=== PATIENT | male | born 1970 | race Caucasian/White ===

== ENCOUNTER 2017-12-04 09:01 | Emergency (ER) | payer MEDICAID, SELFPAY ==
[2017-12-04 09:06] VITALS: BP 124/86; PULSE 74; RESP 18; TEMP 36.8; O2SAT 97; BMI 28.1
--- NOTE | 2017-12-04 09:17 | XR_ITS ---
XR chest 2V HISTORY: Right-sided pain and cough ITS.REASON: r sided pain and cough ORDERING PHYSICIAN: Ovi Watters MD PATIENT AGE: 47 years COMPARISON: 08/31/2016 FINDINGS: The cardiomediastinal silhouette and pulmonary vascularity are within normal limits. The lungs are clear without infiltrates, suspicious nodules, or pleural effusions. There is chronic wedging of T11 slightly worse than when compared to an older lumbar spine film of 02/28/2009. No acute bony abnormalities. IMPRESSION: No acute finding. Chronic wedging of T11
--- NOTE | 2017-12-04 09:17 | CT_ITS ---
CT head/brain wo con HISTORY: Severe right frontal headache ITS.REASON: r frontal headache ORDERING PHYSICIAN: Ovi Watters MD PATIENT AGE: 47 years COMPARISON: None TECHNIQUE: Axial images obtained without contrast. Brain and bone windows reviewed. FINDINGS: No midline shift, mass effect, intracranial hemorrhage, hydrocephalus, or extra-axial fluid collection is evident. The calvarium has an unremarkable appearance. No mastoid effusion. Mild mucosal thickening involves the right maxillary and ethmoid sinuses without obvious air-fluid level... IMPRESSION: 1. No acute intracranial findings. 2. Mild sinus disease.
--- NOTE | 2017-12-04 09:20 | CT_ITS ---
CT abdomen pelvis wo con CLINICAL INDICATION: Right-sided flank pain, right upper quadrant pain ITS.REASON: r flank pain ORDERING PHYSICIAN: Ovi Watters MD PATIENT AGE: 47 years COMPARISON: None TECHNIQUE: Axial images obtained with sagittal and coronal reformats. PROCEDURE: Oral Contrast: None IV Contrast: None . FINDINGS: Lung bases are clear. There is mild diffuse fatty liver with no focal liver lesion demonstrated. No radio opaque gallstones. Spleen, adrenal glands, pancreas, and kidneys have an unremarkable unenhanced CT appearance. No obstructing renal or ureteral calculi. No evidence of appendicitis or diverticulitis. No intestinal obstruction or free air. There is mild thickening of the urinary bladder wall. This however may be due to under distention. Cystitis would be included in the differential diagnosis. No pelvic mass apparent. There is mild wedging of T11 anteriorly which appears old. IMPRESSION: 1. No definite acute abdominal or pelvic findings. 2. Minimal thickening versus nondistention of the urinary bladder wall. 3. Old wedging of T11
--- NOTE | 2017-12-04 09:23 | HMH.EDGENADL ---
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 2- use abx. 3- see pcp 4- cough medicine 5- return if needed. 6- pcp list. Prescriptions: Benzonatate [Tessalon Perle 100mg Cap] 200 mg PO Q4HP PRN #30 cap PRN Reason: Cough Amoxicillin [Amoxicillin 500mg Cap] 500 mg PO TID #30 cap Meloxicam [Mobic 7.5mg Tab] 7.5 mg PO BID 20 Days #10 tab Referrals: Jonas Santos MD [Staff Physician] - - Critical Care Critical Care Time: No Attestation: On , the high probability of a clinically significant, sudden or life threatening deterioration of the following system(s) required my full and direct attention, intervention and personal management. The time I documented below is in addition to time spent performing reported procedures but includes the following listed in this critical care notation. Medical Decision Making - Christiano Inquiry Pt receiving controlled substance: No Christiano was queried for this patient: No Vital Signs: 12/04/17 09:06 Temperature 98.2 F Temperature Source Oral Pulse Rate [Right Brachial] 74 Respiratory Rate 18 Blood Pressure [Right Arm] 124/86 Blood Pressure Mean [Right Arm] 98 Blood Pressure Source [Right Arm] Automatic Cuff Blood Pressure Position [Right Arm] Sitting 02 Sat by Pulse Oximetry 97 Oxygen Delivery Method Room Air - Lab Data Lab Results 12/04/17 09:15: WBC 5.5, RBC 4.84, Hgb 15.2, Hct 45.6, MCV 94.2 H, MCH 31.5 H, MCHC 33.4, RDW 12.8, Plt Count 206, MPV 8.4, Neut % (Auto) 52.1, Lymph % (Auto) 37.4, [place] % (Auto) 7.5, Eos % (Auto) 2.1, Baso % (Auto) 0.9, Neut # (Auto) 2.9, Lymph # (Auto) 2.1, [place] # (Auto) 0.4, Eos # (Auto) 0.1, Baso # (Auto) 0.1 12/04/17 09:15: Sodium 142, Potassium 3.8, Chloride 105, Carbon Dioxide 31, Anion Gap 9.8, BUN 11, Creatinine 1.06, Estimated Creat Clear 97, Estimated GFR 74, Est GFR ( Amer) 90, Glucose 102, Calcium 9.1, Total Bilirubin 0.7, AST 21, ALT 61, Alkaline Phosphatase 114, Troponin I < 0.02, Total Protein 7.6, Albumin 4.0, Globulin 3.6 H, Albumin/Globulin Ratio 1.1, Lipase 107 Result diagrams: 12/04/17 09:15 12/04/17 09:15 Orders (Tests/Meds): ED MEDICATIONS Generic Name Dose Route Start Last Admin Trade Name Freq PRN Reason Stop Dose Admin Benzonatate 200 mg 12/04/17 11:15 12/04/17 11:18 Tessalon Perles 100mg Capsule PO 01/03/18 11:14 200 mg ONCE BRI Administration Ceftriaxone Sodium 1 gm/ 50 mls @ 100 mls/hr 12/04/17 11:15 12/04/17 11:18 Sodium Chloride IV 12/18/17 11:14 100 mls/hr Q24H BRI Administration Protocol Discontinued Medications Generic Name Dose Route Start Last Admin Trade Name Freq PRN Reason Stop Dose Admin Sodium Chloride 1,000 mls @ 999 mls/hr 12/04/17 09:30 12/04/17 10:25 Sod Chlor 0.9% 1000ml Bag IV 12/04/17 10:30 999 mls/hr .Q1H1M BRI Administration Ketorolac Tromethamine 30 mg 12/04/17 09:22 12/04/17 10:25 Toradol 30mg/Ml Vial IV 12/04/17 09:23 30 mg ONCE ONE Administration ORDERS Category Date Time Status XR chest 2V Stat Exams 12/04/17 09:17 Taken Drug Screen,Urine Stat Lab 12/04/17 09:21 Ordered Urinalysis and Microscopic Stat Lab 12/04/17 09:21 Ordered ECG Request by /Nse Stat Y 12/04/17 09:17 Ordered - ECG Data Tracing #1 Normal sinus rhythm 74/min, baseline artifact in lead I and aVR no acute finding. ECG initial impression date: 12/04/17 ECG initial impression time: 09:32 Normal Sinus Rhythm: Yes (74/min no acute finding.) Medical Decision Narrative: The patient felt improvement of his pa
--- NOTE | 2017-12-04 09:27 | ED_ITS ---
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 2- use abx. 3- see pcp 4- cough medicine 5- return if needed. 6- pcp list. Prescriptions: Benzonatate [Tessalon Perle 100mg Cap] 200 mg PO Q4HP PRN #30 cap PRN Reason: Cough Amoxicillin [Amoxicillin 500mg Cap] 500 mg PO TID #30 cap Meloxicam [Mobic 7.5mg Tab] 7.5 mg PO BID 20 Days #10 tab Referrals: Jonas Santos MD [Staff Physician] - - Critical Care Critical Care Time: No Attestation: On , the high probability of a clinically significant, sudden or life threatening deterioration of the following system(s) required my full and direct attention, intervention and personal management. The time I documented below is in addition to time spent performing reported procedures but includes the following listed in this critical care notation. Medical Decision Making - Christiano Inquiry Pt receiving controlled substance: No Christiano was queried for this patient: No Vital Signs: 12/04/17 09:06 Temperature 98.2 F Temperature Source Oral Pulse Rate [Right Brachial] 74 Respiratory Rate 18 Blood Pressure [Right Arm] 124/86 Blood Pressure Mean [Right Arm] 98 Blood Pressure Source [Right Arm] Automatic Cuff Blood Pressure Position [Right Arm] Sitting 02 Sat by Pulse Oximetry 97 Oxygen Delivery Method Room Air - Lab Data Lab Results 12/04/17 09:15: WBC 5.5, RBC 4.84, Hgb 15.2, Hct 45.6, MCV 94.2 H, MCH 31.5 H, MCHC 33.4, RDW 12.8, Plt Count 206, MPV 8.4, Neut % (Auto) 52.1, Lymph % (Auto) 37.4, [place] % (Auto) 7.5, Eos % (Auto) 2.1, Baso % (Auto) 0.9, Neut # (Auto) 2.9 , Lymph # (Auto) 2.1, [place] # (Auto) 0.4, Eos # (Auto) 0.1, Baso # (Auto) 0.1 12/04/17 09:15: Sodium 142, Potassium 3.8, Chloride 105, Carbon Dioxide 31, Anion Gap 9.8, BUN 11, Creatinine 1.06, Estimated Creat Clear 97, Estimated GFR 74, Est GFR ( Amer) 90, Glucose 102, Calcium 9.1, Total Bilirubin 0.7, AST 21, ALT 61, Alkaline Phosphatase 114, Troponin I < 0.02, Total Protein 7.6, Albumin 4.0, Globulin 3.6 H, Albumin/Globulin Ratio 1.1, Lipase 107 Result diagrams: 12/04/17 09:15 12/04/17 09:15 Orders (Tests/Meds): ED MEDICATIONS Generic Name Dose Route Start Last Admin Trade Name Freq PRN Reason Stop Dose Admin Benzonatate 200 mg 12/04/17 11:15 12/04/17 11:18 Tessalon Perles 100mg Capsule PO 01/03/18 11:14 200 mg ONCE BRI Administration Ceftriaxone Sodium 1 gm/ 50 mls @ 100 mls/hr 12/04/17 11:15 12/04/17 11:18 Sodium Chloride IV 12/18/17 11:14 100 mls/hr Q24H BRI Administration Protocol Discontinued Medications Generic Name Dose Route Start Last Admin Trade Name Freq PRN Reason Stop Dose Admin Sodium Chloride 1,000 mls @ 999 mls/hr 12/04/17 09:30 12/04/17 10:25 Sod Chlor 0.9% 1000ml Bag IV 12/04/17 10:30 999 mls/hr .Q1H1M BRI Administration Ketorolac Tromethamine 30 mg 12/04/17 09:22 12/04/17 10:25 T
[2017-12-04 09:30] LABS: Basophils # 0.1 K/mm3 (0-0.2); Basophils % 0.9 % (0.1-2.0); Eosinophils # 0.1 K/mm3 (0.0-0.4); Eosinophils % 2.1 % (0.1-12.0); Hematocrit 45.6 % (42.0-52.0); Hemoglobin 15.2 g/dL (14.1-18.0); Lymphocytes # 2.1 K/mm3 (0.7-4.5); Lymphocytes % 37.4 K/mm3 (10-50); Mean Corpuscular HGB Conc 33.4 g/dL (31.8-35.4); Mean Corpuscular Hemoglobin 31.5 pg (27.0-31.2); Mean Corpuscular Volume 94.2 fl (80-94); Mean Platelet Volume 8.4 fl (7.4-10.4); Monocytes # 0.4 K/mm3 (0.1-1.0); Monocytes % 7.5 % (1.7-9.3); Neutrophils # 2.9 K/mm3 (1.8-7.8); Neutrophils % 52.1 % (37.0-80.0); Platelet Count 206 K/mm3 (142-424); Red Blood Count 4.84 M/mm3 (4.60-6.20); Red Cell Distribution Width 12.8 % (11.5-17.5); White Blood Count 5.5 K/mm3 (4.8-10.8)
[2017-12-04 09:44] LABS: Alanine Aminotransferase 61 U/L (12-78); Albumin/Globulin Ratio 1.1 (1.1-1.8); Alkaline Phosphatase 114 U/L (46-116); Anion Gap 9.8 mEq/L (5-15); Aspartate Amino Transferase 21 U/L (15-37); Bilirubin,Total 0.7 mg/dL (0.2-1.0); Blood Urea Nitrogen 11 mg/dL (7-18); Calcium 9.1 mg/dL (8.5-10.1); Carbon Dioxide 31 mmol/L (21.0-32.0); Chloride 105 mmol/L (98-107); Creatinine Clearance Estimated 97 mL/min (0-300); Creatinine,Serum 1.06 mg/dL (0.70-1.30); Estimated Glomerular Filt Rate 74 ml/min (>60); GFR (African American) 90 ML/MIN (>60); Globulin 3.6 gm/dl (1.3-3.2); Glucose 102 mg/dL (74-106); Lipase 107 u/L (73-393); Potassium 3.8 mmoL/L (3.5-5.1); Sodium 142 mmol/L (136-145); Total Protein,Serum 7.6 gm/dL (6.4-8.2); Troponin I < 0.02 ng/ml (0.00-0.06)
[2017-12-04 12:07] VITALS: BP 142/96; PULSE 73; RESP 20; TEMP 36.9; O2SAT 100
== END 2017-12-04 12:10 | disposition home or self-care (01) ==
PROVIDERS: Emergency Provider Emergency Medicine; Family Provider Pediatrics
DX: M54.5 Low back pain (principal); M54.6 Pain in thoracic spine; F17.210 Nicotine dependence, cigarettes, uncomplicated; J20.9 Acute bronchitis, unspecified
CPT/HCPCS: 70450; 71046; 74176; 80053; 83690; 84484; 85025; 93005; 96365; 96367; 96375; 99282

== ENCOUNTER 2020-06-13 15:19 | Emergency (ER) | payer MEDICAID, SELFPAY ==
[2020-06-13 15:26] VITALS: BP 113/90; PULSE 108; RESP 20; TEMP 36.7; O2SAT 97; BMI 25.8
--- NOTE | 2020-06-13 15:35 | ECG_ITS ---
APPROVED REPORT Exam: Resting ECG HR:87 bpm ECG Measurements Heart Rate 87 AXES RI 136 P 55 QRSd 86 QRS 78 QT 360 T 43 QTc 433 <Conclusion> Normal sinus rhythm Normal ECG Electronically signed by : Chandler Ann, 06/17/2020 06:33:00
[2020-06-13 15:56] VITALS: BP 113/90; PULSE 106; O2SAT 92
[2020-06-13 16:28] VITALS: BP 123/85; PULSE 98; RESP 18; O2SAT 97
--- NOTE | 2020-06-13 16:28 | PC.NURSE ---
Lab at bedside
[2020-06-13 16:39] LABS: Basophils % 0.3 % (0.1-2.0); Eosinophils # 0.2 K/mm3 (0.0-0.4); Eosinophils % 1.6 % (0.1-12.0); Hematocrit 44.4 % (42.0-52.0); Hemoglobin 15.5 g/dL (14.1-18.0); Lymphocytes # 1.3 K/mm3 (0.7-4.5); Lymphocytes % 12.6 % (10-50); Mean Corpuscular HGB Conc 34.9 g/dL (31.8-35.4); Mean Corpuscular Hemoglobin 33.5 pg (27.0-31.2); Mean Platelet Volume 7.8 fl (7.4-10.4); Monocytes # 0.7 K/mm3 (0.1-1.0); Monocytes % 6.6 % (1.7-9.3); Neutrophils # 7.9 K/mm3 (1.8-7.8); Neutrophils % 78.8 % (37.0-80.0); Platelet Count 281 K/mm3 (142-424); Red Blood Count 4.63 M/mm3 (4.60-6.20); Red Cell Distribution Width 13.3 % (11.5-17.5)
[2020-06-13 16:47] VITALS: BP 106/77; PULSE 80; RESP 20; O2SAT 98
[2020-06-13 16:51] LABS: Chloride 101 mmol/L (98-107); Sodium 140 mmol/L (136-145)
[2020-06-13 16:54] LABS: Alanine Aminotransferase 24 U/L (12-78); Albumin Level 4.8 g/dl (3.5-5.0); Albumin/Globulin Ratio 1.5 (1.1-1.8); Alkaline Phosphatase 108 U/L (38-126); Aspartate Amino Transferase 34 U/L (17-59); Blood Urea Nitrogen 18 mg/dl (9-20); Carbon Dioxide 25 mmol/L (22.0-30.0); Creatinine Clearance Estimated 91 mL/min (50-200); Estimated Glomerular Filt Rate 70 ml/min (>60); GFR (African American) 85 ML/MIN (>60); Globulin 3.3 g/dL (1.3-3.2); Total Protein,Serum 8.1 g/dl (6.3-8.2)
[2020-06-13 16:55] LABS: Calcium 10.5 mg/dl (8.4-10.2); Glucose 125 mg/dl (74-100)
[2020-06-13 16:56] LABS: Ethyl Alcohol < 10 mg/dl (0-10)
[2020-06-13 17:18] VITALS: BP 131/95; PULSE 90; RESP 18; O2SAT 98
[2020-06-13 17:26] LABS: Thyroid Stimulating Hormone 2.51 uIU/mL (0.465-4.68)
[2020-06-13 17:41] VITALS: BP 128/87; PULSE 91; RESP 19; TEMP 36.7; O2SAT 99
--- NOTE | 2020-06-13 18:09 | HMH.EDGENADL ---
ED Disposition Clinical Impression: Hallucinations Disposition: Home, Self-Care Condition on Discharge: Good Additional Instructions: Follow up with Brooklynn Zacarias APRN in the Behavioral Health clinic. Return with any concerns or thoughts of wanting to harm yourself or others. Avoid alcohol and recreational drugs. Referrals: Brooklynn Zacarias, HARI [Nurse Practitioner] - PCP,No [Primary Care Provider] - - Critical Care Critical Care Time: No Attestation: On 06/13/20, the high probability of a clinically significant, sudden or life threatening deterioration of the following system(s) required my full and direct attention, intervention and personal management. The time I documented below is in addition to time spent performing reported procedures but includes the following listed in this critical care notation. Medical Decision Making - Christiano Inquiry Pt receiving controlled substance: No Vital Signs: 06/13/20 15:26 06/13/20 15:56 06/13/20 16:28 Temperature 98.0 F Temperature Source Oral Pulse Rate Pulse Rate [Right Radial] 108 H 106 H 98 H Respiratory Rate 20 18 Blood Pressure Blood Pressure [Right Arm] 113/90 113/90 123/85 Blood Pressure Mean [Right Arm] 97 97 97 Blood Pressure Source Blood Pressure Source [Right Arm] Automatic Cuff Automatic Cuff Automatic Cuff Blood Pressure Position Blood Pressure Position [Right Arm] Sitting Sitting Sitting 02 Sat by Pulse Oximetry 97 92 L 97 Oxygen Delivery Method Room Air Room Air Room Air 06/13/20 16:47 06/13/20 17:18 06/13/20 17:41 Temperature 98.0 F Temperature Source Oral Pulse Rate 91 H Pulse Rate [Right Radial] 80 90 Respiratory Rate 20 18 19 Blood Pressure 128/87 Blood Pressure [Right Arm] 106/77 L 131/95 H Blood Pressure Mean [Right Arm] 86 107 Blood Pressure Source Automatic Cuff Blood Pressure Source [Right Arm] Automatic Cuff Automatic Cuff Blood Pressure Position Sitting Blood Pressure Position [Right Arm] Supine 02 Sat by Pulse Oximetry 98 98 Oxygen Delivery Method Room Air Room Air Room Air - Lab Data Lab Results 06/13/20 16:31: WBC 10.0, RBC 4.63, Hgb 15.5, Hct 44.4, MCV 96.0 H, MCH 33.5 H, MCHC 34.9, RDW 13.3, Plt Count 281, MPV 7.8, Neut % (Auto) 78.8, Lymph % (Auto) 12.6, [place] % (Auto) 6.6, Eos % (Auto) 1.6, Baso % (Auto) 0.3, Neut # (Auto) 7.9 H, Lymph # (Auto) 1.3, [place] # (Auto) 0.7, Eos # (Auto) 0.2, Baso # (Auto) 0.0 06/13/20 16:31: Sodium 140, Potassium 4.0, Chloride 101, Carbon Dioxide 25, Anion Gap 18.0 H, BUN 18, Creatinine 1.10, Estimated Creat Clear 91, Estimated GFR 70, Est GFR ( Amer) 85, Glucose 125 H, Calcium 10.5 H, Total Bilirubin 2.0 H, AST 34, ALT 24, Alkaline Phosphatase 108, Total Protein 8.1, Albumin 4.8, Globulin 3.3 H, Albumin/Globulin Ratio 1.5, TSH 2.51 06/13/20 16:31: Plasma/Serum Alcohol < 10 Result diagrams: 06/13/20 16:31 06/13/20 16:31 Orders (Tests/Meds): ORDERS Category Date Time Status Drug Screen,Urine Stat Lab 06/13/20 15:35 Ordered ECG Request by /Faustino Stat Y 06/13/20 15:35 Ordered Medical Decision Narrative: The patient is a 50 year old male who presents with auditory and visual hallucinations after using recreational drugs. Patient is awake, alert, VS stable except for mild tachycardia. Patient can have a linear conversation on exam and answers questions appropriately. He denies SI/HI. He does endorse AVH but has insight into what is going on. Labs were obtained which were unremarkable. I suspect substance induced hallucinations. At this point I do not think the patient is at risk of harming himself or others. I will discharge him with follow up with behavioral health. I discussed this with the patient and friend who are in agreement. General Adult HPI - General Chief complaint: Psychiatric Symptoms Stated complaint: Needs to be eval\ Time Seen by Provider: 06/13/20 15:27 Mode of Arrival: Ambulatory Limitations: No Limitations Descr
== END 2020-06-13 17:42 | disposition home or self-care (01) ==
PROVIDERS: Emergency Provider Emergency Medicine
DX: R44.0 Auditory hallucinations (principal); R44.1 Visual hallucinations
CPT/HCPCS: 80053; 84443; 85025; 99283

== ENCOUNTER 2020-09-25 01:28 | Emergency (ER) | payer MEDICAID, SELFPAY ==
[2020-09-25 01:24] VITALS: RESP 16; TEMP 36.7; O2SAT 98; BMI 21.9
--- NOTE | 2020-09-25 01:34 | CT_ITS ---
PROCEDURE: CT SINUS WO CON CLINICAL HISTORY: head pain Headache COMPARISON: No exams were available for comparison TECHNIQUE: Axial images obtained with sagittal and coronal reformats. All CT scans at the facility use one or more dose reduction, viz: automated exposure control, ma/kV adjustment per patient size (including targeted exams where dose is matched to indication, i.e. head), or iterative reconstruction technique. FINDINGS: There is mild mucosal thickening the ethmoid sinuses anteriorly and centrally. Minimal mucosal thickening noted involving the left maxillary sinus inferiorly with small mucous retention cyst in the anterior aspect of the left maxillary sinus. There is mild leftward nasal septal deviation. No sinus air-fluid levels are evident. The ostiomeatal units are patent. The mastoid sinuses have an unremarkable appearance. Orbits appear unremarkable. The TMJs are unremarkable. IMPRESSION: Minimal mucosal thickening of the paranasal sinuses with no evidence of acute sinusitis. Dictated by: Branden Machuca MD 09/25/2020 06:27 Branden Machuca MD in [place] 09/25/2020 06:27
--- NOTE | 2020-09-25 01:34 | CT_ITS ---
PROCEDURE: CT LUMBAR SPINE WO CON CLINICAL HISTORY: Acute low back pain COMPARISON: CT ABDPELWO CT abdomen pelvis wo con from 12/04/2017 TECHNIQUE: Axial images obtained with sagittal and coronal reformats. All CT scans at the facility use one or more dose reduction, viz: automated exposure control, ma/kV adjustment per patient size (including targeted exams where dose is matched to indication, i.e. head), or iterative reconstruction technique. FINDINGS: Chronic wedge compression changes are present at L1 with loss of height anteriorly of approximately 40 percent. No retropulsion. No acute fracture or dislocation evident. Minimal bulging disc L4-5 and L5-S1. Facet hypertrophic changes are present at L5-S1 with bilateral lateral recess and foraminal narrowing. There are several sclerotic foci within the ilium on both sides possibly due to bone islands. At least 1 area is more prominent involving the medial aspect of the left ilium. Bone scan may provide further evaluation. IMPRESSION: 1. No acute fracture. 2. Chronic wedge compression changes of L1 3. Bulging disc at L5-S1 with facet hypertrophic change with bilateral lateral recess and foraminal narrowing. 4. Sclerotic foci of the ilium on both sides slightly more prominent on the left possibly due to bone islands. Consider bone scan for further evaluation to exclude active blastic process. Dictated by: Branden Machuca MD 09/25/2020 06:33 Branden Machuca MD in [facility] 09/25/2020 06:33
--- NOTE | 2020-09-25 01:34 | CT_ITS ---
PROCEDURE: CT HEAD/BRAIN WO CON CLINICAL INDICATION: head pain Headache COMPARISON: CT HEADWO CT head/brain wo con from 12/04/2017 TECHNIQUE: Axial images obtained. All CT scans at the facility use one or more dose reduction, viz: automated exposure control, ma/kV adjustment per patient size (including targeted exams where dose is matched to indication, i.e. head), or iterative reconstruction technique. FINDINGS: No midline shift, mass effect, intracranial hemorrhage, hydrocephalus, or extra-axial fluid collection is evident. The calvarium has an unremarkable appearance. No mastoid effusion. No sinus air-fluid level. IMPRESSION: No acute intracranial finding Dictated by: Branden Machuca MD 09/25/2020 06:24 Branden Machuca MD in [place] 09/25/2020 06:24
--- NOTE | 2020-09-25 01:51 | PC.NURSE ---
pt to CT
--- NOTE | 2020-09-25 02:03 | HMH.EDGENADL ---
ED Disposition Clinical Impression: Headache Qualifiers: Headache type: unspecified Headache chronicity pattern: acute headache Intractability: not intractable Qualified Code(s): R51.9 - Headache, unspecified Disposition: Home, Self-Care Condition on Discharge: Good Instructions: DI for Headache Additional Instructions: use meds and see pcp for follow up Prescriptions: predniSONE [Prednisone 20mg Tab] 20 mg PO BID #10 tab Transmission Status: Pending to [facility] Referrals: PCP,No [Primary Care Provider] - - Critical Care Critical Care Time: No Attestation: On 09/25/20, the high probability of a clinically significant, sudden or life threatening deterioration of the following system(s) required my full and direct attention, intervention and personal management. The time I documented below is in addition to time spent performing reported procedures but includes the following listed in this critical care notation. Medical Decision Making - Medical Records Medical records reviewed: Yes: I reviewed the patient's medical records. - Christiano Inquiry Pt receiving controlled substance: No Vital Signs: 09/25/20 01:24 Temperature 98.0 F Temperature Source Oral Respiratory Rate 16 02 Sat by Pulse Oximetry 98 Oxygen Delivery Method Room Air - Lab Data Lab results reviewed: Yes: I reviewed the patient's lab results. Orders (Tests/Meds): ORDERS Category Date Time Status CT head/brain wo con Stat Cat Scan 09/25/20 01:[address] lumbar spine wo con Stat Cat Scan 09/25/20 01:[address] sinus wo con Stat Cat Scan 09/25/20 01:34 Taken - CT Data CT Scan: Head, C-Spine, Sinus Time Received: 03:[address] Reviewed: Yes: I have viewed the radiologist's interpretation Preliminary Findings: No Fracture Seen Medical Decision Narrative: possible tmj - will give steroids at this time and see pcp for follow up General Adult HPI - General Chief complaint: PAIN Stated complaint: headache x 3 days, chronic back pain Time Seen by Provider: 09/25/20 01:45 Mode of Arrival: Family Vehicle Source of Information: Patient, EMS, Medical Record Limitations: No Limitations Description of Symptoms (Recalled from ER Triage Doc. by RN): pt came in with complaints of having a headache for 3 days/chronic back pain that he says he deals with on a daily basis. pt alert, oriented, no neurological deficits. nih 0. vss. denies dyspnea, denies nausea/vomiting. denies trauma. - History of Present Illness HPI narrative: lt sides jenkins over the last few days w/o fever/rash or trauma - worse with jaw movement Onset (ago): day(s) Location: head Severity: moderate Associated symptoms: denies other symptoms Treatments prior to arrival: none - Related Data Previous Rx's Medication Instructions Recorded Azithromycin [Zithromax 250mg 250 mg PO DIRECTED #6 tab 08/05/18 tab] Benzonatate [Tessalon Perle 100mg 100 mg PO TID #30 cap 08/05/18 Cap] Benzonatate [Tessalon Perle 100mg 100 mg PO TID #30 cap 08/29/19 Cap] levoFLOXacin [Levaquin 500mg 500 mg PO DAILY #7 tab 08/29/19 tab] predniSONE [Prednisone 20mg 20 mg PO BID #10 tab 08/29/19 Tab] predniSONE [Prednisone 20mg 20 mg PO BID #10 tab 09/25/20 Tab] Allergies Allergy/AdvReac Type Severity Reaction Status Date / Time No Known Allergies Allergy Verified 08/05/18 00:05 [facility] History - Hepatitis A Screen Drug use history?: No High risk sexual behaviors?: No History of sexually transmitted infection?: No Currently employed?: No Childcare worker?: No Do you have indoor plumbing?: Yes Do you have electricity?: Yes Attestation statement:: This patient has been screened for Hepatitis A risk factors. I have reviewed the patient's past medical history: Yes Medical History: Denies:: Diabetes Mellitus Type 1, Diabetes Mellitus Type 2 - Social History Smoking Status: Current every day smoker Tobacco Type: cigar
[2020-09-25 03:25] VITALS: BP 142/75; PULSE 81; RESP 16; TEMP 36.7; O2SAT 98
== END 2020-09-25 03:27 | disposition home or self-care (01) ==
PROVIDERS: Emergency Provider Emergency Medicine
DX: R51.9 Headache, unspecified (principal); M54.5 Low back pain; F17.210 Nicotine dependence, cigarettes, uncomplicated
CPT/HCPCS: 70450; 70486; 72131; 99282

== ENCOUNTER 2020-10-12 21:17 | Emergency (ER) | payer MEDICAID, SELFPAY ==
[2020-10-12 21:03] VITALS: BP 127/82; PULSE 81; RESP 16; TEMP 36.8; O2SAT 98; BMI 19.0
--- NOTE | 2020-10-12 21:14 | XR_ITS ---
PROCEDURE: XR CHEST 2V CLINICAL HISTORY: back pain Low back pain, shortness of breath COMPARISON: CR Chest from 12/04/2017 DX CXR2V XR chest 2V from 12/04/2017 CR XR CHEST 2V from 08/29/2019 FINDINGS: The cardiomediastinal silhouette and pulmonary vascularity are within normal limits. The lungs are clear without infiltrates, suspicious nodules, or pleural effusions. There are degenerative changes in the thoracic spine with thoracic kyphosis with mild wedging of [id number] and L1 which appears chronic IMPRESSION: No acute findings. Dictated by: Branden Machuca MD 10/13/2020 05:25 Branden Machuca MD in [place] 10/13/2020 05:25
--- NOTE | 2020-10-12 21:16 | CT_ITS ---
PROCEDURE: CT LUMBAR SPINE WO CON CLINICAL HISTORY: lower back pain COMPARISON: CT CT LUMBAR SPINE WO CON from 09/25/2020 TECHNIQUE: Axial images obtained with sagittal and coronal reformats. All CT scans at the facility use one or more dose reduction, viz: automated exposure control, ma/kV adjustment per patient size (including targeted exams where dose is matched to indication, i.e. head), or iterative reconstruction technique. FINDINGS: There is normal alignment. Mild compression deformity involves superior endplate of L1 with loss of height anteriorly of approximately 30 percent. This is not significantly changed. No retropulsion. Small sclerotic foci are present in T12 sacrum and bilateral iliac bones. T12-L1: Degenerative disc disease with anterior osteophytes. L1-L2: Mild anterior osteophytes. L2-L3: Mild bulging disc. L3-L4: Unremarkable. L4-5: Unremarkable. L5-S1: Bulging disc with mild facet and ligamentum hypertrophy with bilateral foraminal narrowing. IMPRESSION: 1. No change with no acute finding. 2. Chronic wedge compression of L1 unchanged. 3. Bulging disc at L2-L3 and L5-S1. 4. Sclerotic foci of the ileum and T12. Not significantly changed Dictated by: Branden Machuca MD 10/13/2020 05:57 Branden Machuca MD in [place] 10/13/2020 05:57
[2020-10-12 22:34] LABS: Basophils # 0.1 K/mm3 (0-0.2); Basophils % 0.8 % (0.1-2.0); Eosinophils # 0.1 K/mm3 (0.0-0.4); Eosinophils % 1.9 % (0.1-12.0); Hematocrit 43.4 % (42.0-52.0); Hemoglobin 14.8 g/dL (14.1-18.0); Lymphocytes # 1.6 K/mm3 (0.7-4.5); Lymphocytes % 24.9 % (10-50); Mean Corpuscular HGB Conc 34.2 g/dL (31.8-35.4); Mean Corpuscular Hemoglobin 30.8 pg (27.0-31.2); Mean Corpuscular Volume 90.2 fl (80-94); Mean Platelet Volume 8.7 fl (7.4-10.4); Monocytes # 0.4 K/mm3 (0.1-1.0); Neutrophils # 4.3 K/mm3 (1.8-7.8); Neutrophils % 66.4 % (37.0-80.0); Platelet Count 276 K/mm3 (142-424); Red Blood Count 4.81 M/mm3 (4.60-6.20); Red Cell Distribution Width 13.7 % (11.5-17.5); White Blood Count 6.4 K/mm3 (4.8-10.8)
[2020-10-12 22:39] LABS: Microscopic, Urine URINE MICROSCOPIC (MICROSCOPIC)
--- NOTE | 2020-10-12 22:48 | ECG_ITS ---
APPROVED REPORT Exam: Resting ECG HR:64 bpm ECG Measurements Heart Rate 64 AXES SC 138 P 67 QRSd 86 QRS 54 QT 402 T 45 QTc 414 Conclusion Normal sinus rhythm with sinus arrhythmia Normal ECG Electronically signed by : Chandler Ann, 10/13/2020 18:02:41
--- NOTE | 2020-10-12 22:53 | HMH.EDHA ---
ED Disposition Clinical Impression: Abnormal drug screen Chronic low back pain Qualifiers: Back pain laterality: unspecified Sciatica presence: without sciatica Qualified Code(s): M54.5 - Low back pain; G89.29 - Other chronic pain Headache Qualifiers: Headache type: unspecified Headache chronicity pattern: chronic headache Intractability: not intractable Qualified Code(s): R51.9 - Headache, unspecified; G89.29 - Other chronic pain Disposition: Home, Self-Care Condition on Discharge: Good Instructions: DI for Headache Additional Instructions: call pcp for follow up and call stoner atka to arrange eval Referrals: PCP,No [Primary Care Provider] - - Critical Care Critical Care Time: No Attestation: On 10/12/20, the high probability of a clinically significant, sudden or life threatening deterioration of the following system(s) required my full and direct attention, intervention and personal management. The time I documented below is in addition to time spent performing reported procedures but includes the following listed in this critical care notation. Medical Decision Making - Medical Records Medical records reviewed: Yes: I reviewed the patient's medical records. - Christiano Inquiry Pt receiving controlled substance: No Vital Signs: 10/12/20 21:03 Temperature 98.2 F Temperature Source Oral Pulse Rate [Left Radial] 81 Respiratory Rate 16 Blood Pressure [Right Arm] 127/82 Blood Pressure Mean [Right Arm] 97 Blood Pressure Source [Right Arm] Automatic Cuff Blood Pressure Position [Right Arm] Sitting 02 Sat by Pulse Oximetry 98 Oxygen Delivery Method Room Air - Lab Data Lab results reviewed: Yes: I reviewed the patient's lab results. Lab Results 10/12/20 22:15: WBC 6.4, RBC 4.81, Hgb 14.8, Hct 43.4, MCV 90.2, MCH 30.8, MCHC 34.2, RDW 13.7, Plt Count 276, MPV 8.7, Neut % (Auto) 66.4, Lymph % (Auto) 24.9, Coles % (Auto) 6.0, Eos % (Auto) 1.9, Baso % (Auto) 0.8, Neut # (Auto) 4.3, Lymph # (Auto) 1.6, Coles # (Auto) 0.4, Eos # (Auto) 0.1, Baso # (Auto) 0.1, ESR 15 10/12/20 22:15: Sodium 141, Potassium 3.7, Chloride 106, Carbon Dioxide 29, Anion Gap 9.7, BUN 9, Creatinine 0.90, Estimated Creat Clear 77, Estimated GFR 89, Est GFR ( Amer) 107, Glucose 99, Calcium 10.0, Total Bilirubin 0.6, AST 22, ALT 12, Alkaline Phosphatase 91, Total Protein 7.5, Albumin 4.4, Globulin 3.1, Albumin/Globulin Ratio 1.4, Salicylates < 1.0 L, Acetaminophen < 10 L 10/12/20 22:15: Urine Color Yellow, Urine Appearance Clear, Urine pH 6.0, Ur Specific Pike >= 1.030, Urine Protein Negative, Urine Glucose (UA) Negative, Urine Ketones Negative, Urine Blood Negative, Urine Nitrate Negative, Urine Bilirubin Negative, Urine Urobilinogen 0.2, Ur Leukocyte Esterase Negative, Urine RBC 3-5, Urine WBC 3-5, Urine Bacteria 1+, Urine Mucus 1+ 10/12/20 22:15: Urine Opiates Screen Negative, Urine Methadone Screen Negative, Ur Barbituates Screen Negative, Ur Phencyclidine Scrn Negative, Ur 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 Screen 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, U Benzodiazepines Scrn Negative, Urine Cocaine Screen Negative, U Marijuana (THC) Screen Negative 10/12/20 22:15: Plasma/Serum Alcohol < 10 Result diagrams: 10/12/20 22:15 10/12/20 22:15 Orders (Tests/Meds): ORDERS Category Date Time Status CT lumbar spine wo con Stat Cat Scan 10/12/20 21:16 Taken XR chest 2V Stat Exams 10/12/20 21:14 Taken - Radiology Data #1 Image(s): Chest Image Reviewed: Yes I reviewed the patient's radiology image Preliminary Findings: Normal/NAD - CT Data CT Scan: L-Spine Time Received: 23:[address] Reviewed: Yes: I have viewed the radiologist's interpretation Preliminary Findings: Abnormal (see report ) - ECG Data Tracing #1 Normal Sinus Rhythm: Yes Ischemic changes: non-specific ST-T wave changes Medical Decision Narrative: has chronic issues and positive uds - will ask pt to call jackie emanuel for follow up in am Headache HPI - General Chief Complaint: Headache Stated
[2020-10-12 23:00] LABS: Appearance,Urine CLEAR (Clear); Blood, Urine Negative (Negative); Color,Urine YELLOW (Yellow); Glucose,Urine (UA) Negative (Negative); Ketones,Urine Negative (Negative); Leukocyte Esterase,Urine Negative (Negative); Nitrate,Urine Negative (Negative); Protein,Urine Negative (Negative); Specific Gravity, Urine >= 1.030 (1.005-1.030); Urobilinogen,Urine 0.2 EU/dl (0.2)
[2020-10-12 23:05] LABS: Bilirubin,Urine Negative (Negative)
[2020-10-12 23:08] LABS: Alanine Aminotransferase 12 U/L (12-78); Albumin Level 4.4 g/dl (3.5-5.0); Albumin/Globulin Ratio 1.4 (1.1-1.8); Alkaline Phosphatase 91 U/L (38-126); Anion Gap 9.7 mEq/L (5-15); Aspartate Amino Transferase 22 U/L (17-59); Bilirubin,Total 0.6 mg/dl (0.2-1.3); Blood Urea Nitrogen 9 mg/dl (9-20); Carbon Dioxide 29 mmol/L (22.0-30.0); Chloride 106 mmol/L (98-107); Creatinine Clearance Estimated 77 mL/min (50-200); Estimated Glomerular Filt Rate 89 ml/min (>60); GFR (African American) 107 ML/MIN (>60); Globulin 3.1 g/dL (1.3-3.2); Glucose 99 mg/dl (74-100); Potassium 3.7 mmoL/L (3.5-5.1); Sodium 141 mmol/L (136-145); Total Protein,Serum 7.5 g/dl (6.3-8.2)
[2020-10-12 23:10] LABS: Benzodiazepines Screen,Urine Negative ng/ml (<200); Erythrocyte Sedimentation Rate 15 mm/hr (0-20)
[2020-10-12 23:11] LABS: Barbiturates Screen,Urine Negative ng/ml (<200)
[2020-10-12 23:12] LABS: Acetaminophen < 10 ug/ml (10-30); Cannabinoid Screen,Urine Negative ng/ml (<50); Ethyl Alcohol < 10 mg/dl (0-10); Salicylate < 1.0 mg/dL (2.0-20.0)
[2020-10-12 23:13] LABS: Cocaine Screen,Urine Negative ng/ml (<300)
[2020-10-12 23:14] LABS: Methadone Screen,Urine Negative ng/ml (<300); Opiate Screen,Urine Negative ng/ml (<300)
[2020-10-12 23:15] LABS: Phencyclidine Screen,Urine Negative ng/ml (<25)
[2020-10-12 23:34] LABS: Bacteria,Urine 1+ /lpf; Mucus,Urine 1+ /lpf
[2020-10-12 23:53] VITALS: BP 130/84; PULSE 96; RESP 16; TEMP 36.8; O2SAT 98
[2020-10-17 22:56] LABS: Amphetamine Positive (.); Amphetamines Positive (.); Methamphetamine Positive (.)
[2020-10-18 15:41] LABS: Amphetamine (GC/MS) >3000 ng/mL (Cutoff=500); Methamphetamine (GC/MS) >3000 ng/mL (Cutoff=500)
== END 2020-10-12 23:55 | disposition home or self-care (01) ==
PROVIDERS: Emergency Provider Emergency Medicine
DX: R51.9 Headache, unspecified (principal); M54.5 Low back pain; G89.29 Other chronic pain; R89.2 Abnormal level of other drugs, medicaments and biological substances in specimens from other organs, systems and tissues; F17.210 Nicotine dependence, cigarettes, uncomplicated
CPT/HCPCS: 71046; 72131; 80053; 80305; 80324; 80329; 81001; 85025; 85651; 93005; 99283

== ENCOUNTER 2020-12-07 16:16 | Emergency (ER) | payer MEDICAID, SELFPAY ==
[2020-12-07 16:17] VITALS: BP 150/94; PULSE 116; RESP 20; TEMP 36.9; O2SAT 96; BMI 28.1
[2020-12-07 16:20] VITALS: PULSE 116; O2SAT 99
--- NOTE | 2020-12-07 16:24 | XR_ITS ---
PROCEDURE: XR CHEST PORTABLE CLINICAL HISTORY: weakness COMPARISON: No exams were available for comparison FINDINGS: The cardiomediastinal silhouette and pulmonary vascularity are within normal limits. The lungs are clear without infiltrates, suspicious nodules, or pleural effusions. No acute bony abnormalities. IMPRESSION: No acute findings. Dictated by: Branden Machuca MD 12/07/2020 17:14 Branden Machuca MD in [place] 12/07/2020 17:14
[2020-12-07 16:30] VITALS: BP 138/94; PULSE 118; PULSE 120; O2SAT 98
[2020-12-07 16:45] VITALS: PULSE 111; O2SAT 98
--- NOTE | 2020-12-07 16:52 | HMH.EDGENADL ---
ED Disposition Clinical Impression: Left against medical advice, Shakiness, Nausea Headache Qualifiers: Headache type: unspecified Headache chronicity pattern: unspecified pattern Intractability: not intractable Qualified Code(s): R51.9 - Headache, unspecified Disposition: Left Against Medical Advice Condition on Discharge: Good Referrals: Jonas Santos MD [Primary Care Provider] - - Critical Care Critical Care Time: No Attestation: On 12/07/20, the high probability of a clinically significant, sudden or life threatening deterioration of the following system(s) required my full and direct attention, intervention and personal management. The time I documented below is in addition to time spent performing reported procedures but includes the following listed in this critical care notation. Medical Decision Making - Christiano Inquiry Pt receiving controlled substance: No Vital Signs: 12/07/20 16:17 12/07/20 16:20 12/07/20 16:30 Temperature 98.4 F Temperature Source Oral Pulse Rate 116 H 120 H Pulse Rate [Radial] 116 H Respiratory Rate 20 Blood Pressure 138/94 H Blood Pressure [Right Arm] 150/94 H Blood Pressure Mean 102 Blood Pressure Mean [Right Arm] 112 Blood Pressure Position [Right Arm] Sitting 02 Sat by Pulse Oximetry 96 99 98 Oxygen Delivery Method Room Air 12/07/20 16:45 12/07/20 16:57 Temperature Temperature Source Pulse Rate 111 H 108 H Pulse Rate [Radial] Respiratory Rate Blood Pressure 145/97 H Blood Pressure [Right Arm] Blood Pressure Mean 110 Blood Pressure Mean [Right Arm] Blood Pressure Position [Right Arm] 02 Sat by Pulse Oximetry 98 100 Oxygen Delivery Method - Lab Data Lab Results 12/07/20 16:45: WBC 6.3, RBC 4.66, Hgb 13.8 L, Hct 41.4 L, MCV 88.8, MCH 29.6, MCHC 33.4, RDW 13.7, Plt Count 252, MPV 7.8, Neut % (Auto) 71.1, Lymph % (Auto) 21.5, Tucker % (Auto) 5.7, Eos % (Auto) 1.2, Baso % (Auto) 0.6, Neut # (Auto) 4.5, Lymph # (Auto) 1.4, Tucker # (Auto) 0.4, Eos # (Auto) 0.1, Baso # (Auto) 0.0 12/07/20 16:45: Sodium 139, Potassium 4.1, Chloride 106, Carbon Dioxide 24, Anion Gap 13.1, BUN 11, Creatinine 0.80, Estimated Creat Clear 125, Estimated GFR 102, Est GFR ( Amer) 123, Glucose 101 H, Calcium 9.5, Total Bilirubin 0.5, AST 24, ALT 22, Alkaline Phosphatase 95, Total Protein 7.2, Albumin 4.5, Globulin 2.7, Albumin/Globulin Ratio 1.7 12/07/20 16:45: Troponin I < 0.01 12/07/20 16:45: Plasma/Serum Alcohol < 10 12/07/20 17:40: Urine Color Yellow, Urine Appearance Clear, Urine pH 7.5, Ur Specific Kamuel[place] 1.020, Urine Protein Negative, Urine Glucose (UA) Negative, Urine Ketones Negative, Urine Blood Negative, Urine Nitrate Negative, Urine Bilirubin Negative, Urine Urobilinogen 0.2, Ur Leukocyte Esterase Negative, Urine RBC None, Urine WBC None, Ur Squamous Epith Cells None, Urine Bacteria None 12/07/20 17:40: Urine Opiates Screen Negative, Urine Methadone Screen Negative, Ur Barbituates Screen Negative, Ur Phencyclidine Scrn Negative, Ur 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 Screen Positive H, U Benzodiazepines Scrn Negative, Urine Cocaine Screen Negative, U Marijuana (THC) Screen Negative Result diagrams: 12/07/20 16:45 12/07/20 16:45 Orders (Tests/Meds): ED MEDICATIONS Discontinued Medications Generic Name Dose Route Start Last Admin Trade Name Freq PRN Reason Stop Dose Admin Sodium Chloride 1,000 mls @ 999 mls/hr 12/07/20 16:30 12/07/20 16:49 Sod Chlor 0.9% 1000ml Bag IV 12/07/20 17:30 999 mls/hr .Q1H1M BRI Administration Ketorolac Tromethamine 30 mg 12/07/20 17:06 12/07/20 17:26 Ketorolac 30mg/Ml Vial IV 12/07/20 17:07 30 mg ONCE ONE Administration Ondansetron HCl 4 mg 12/07/20 17:06 12/07/20 17:25 Ondansetron 4mg/2ml Vial IV 12/07/20 17:07 4 mg ONCE ONE Administration ORDERS Category Date Time Status Troponin I Q3H Lab 03/18/21 20:00 Ordered Troponin I Q3H Lab 12/07/20 23:00 Ordered - Radiology Driss
[2020-12-07 16:53] LABS: Basophils % 0.6 % (0.1-2.0); Eosinophils # 0.1 K/mm3 (0.0-0.4); Eosinophils % 1.2 % (0.1-12.0); Hematocrit 41.4 % (42.0-52.0); Hemoglobin 13.8 g/dL (14.1-18.0); Lymphocytes # 1.4 K/mm3 (0.7-4.5); Lymphocytes % 21.5 % (10-50); Mean Corpuscular HGB Conc 33.4 g/dL (31.8-35.4); Mean Corpuscular Hemoglobin 29.6 pg (27.0-31.2); Mean Corpuscular Volume 88.8 fl (80-94); Mean Platelet Volume 7.8 fl (7.4-10.4); Monocytes # 0.4 K/mm3 (0.1-1.0); Monocytes % 5.7 % (1.7-9.3); Neutrophils # 4.5 K/mm3 (1.8-7.8); Neutrophils % 71.1 % (37.0-80.0); Platelet Count 252 K/mm3 (142-424); Red Blood Count 4.66 M/mm3 (4.60-6.20); Red Cell Distribution Width 13.7 % (11.5-17.5); White Blood Count 6.3 K/mm3 (4.8-10.8)
[2020-12-07 16:57] VITALS: BP 145/97; PULSE 106; PULSE 108; O2SAT 100; O2SAT 99
[2020-12-07 17:01] LABS: Chloride 106 mmol/L (98-107); Potassium 4.1 mmoL/L (3.5-5.1); Sodium 139 mmol/L (136-145)
[2020-12-07 17:03] LABS: Alanine Aminotransferase 22 U/L (12-78); Aspartate Amino Transferase 24 U/L (17-59); Blood Urea Nitrogen 11 mg/dl (9-20); Creatinine Clearance Estimated 125 mL/min (50-200); Estimated Glomerular Filt Rate 102 ml/min (>60); GFR (African American) 123 ML/MIN (>60)
[2020-12-07 17:04] LABS: Albumin Level 4.5 g/dl (3.5-5.0); Albumin/Globulin Ratio 1.7 (1.1-1.8); Alkaline Phosphatase 95 U/L (38-126); Anion Gap 13.1 mEq/L (5-15); Bilirubin,Total 0.5 mg/dl (0.2-1.3); Calcium 9.5 mg/dl (8.4-10.2); Carbon Dioxide 24 mmol/L (22.0-30.0); Globulin 2.7 g/dL (1.3-3.2); Glucose 101 mg/dl (74-100); Total Protein,Serum 7.2 g/dl (6.3-8.2)
[2020-12-07 17:10] LABS: Ethyl Alcohol < 10 mg/dl (0-10)
[2020-12-07 17:19] LABS: Troponin I < 0.01 ng/ml (0.00-0.034)
[2020-12-07 17:55] LABS: Microscopic, Urine URINE MICROSCOPIC (MICROSCOPIC)
[2020-12-07 17:57] LABS: Appearance,Urine CLEAR (Clear); Bilirubin,Urine Negative (Negative); Blood, Urine Negative (Negative); Color,Urine YELLOW (Yellow); Glucose,Urine (UA) Negative (Negative); Ketones,Urine Negative (Negative); Leukocyte Esterase,Urine Negative (Negative); Nitrate,Urine Negative (Negative); PH,Urine 7.5 (5.0-8.5); Protein,Urine Negative (Negative); Urobilinogen,Urine 0.2 EU/dl (0.2)
[2020-12-07 18:09] LABS: Amphetamine/Metha Screen,Urine Positive ng/ml (<1000); Barbiturates Screen,Urine Negative ng/ml (<200)
[2020-12-07 18:10] LABS: Benzodiazepines Screen,Urine Negative ng/ml (<200); Cocaine Screen,Urine Negative ng/ml (<300)
[2020-12-07 18:11] LABS: Methadone Screen,Urine Negative ng/ml (<300)
[2020-12-07 18:12] LABS: Cannabinoid Screen,Urine Negative ng/ml (<50); Opiate Screen,Urine Negative ng/ml (<300)
[2020-12-07 18:13] LABS: Phencyclidine Screen,Urine Negative ng/ml (<25)
--- NOTE | 2020-12-07 18:32 | PC.NURSE ---
PATIENT LEFT AMA AT 1830 AFTER HE SIGNED THE AMA FORM AND HIS IV WAS DISCONTINUED
[2020-12-07 18:41] VITALS: BP 123/74; PULSE 112; RESP 16; TEMP 36.6; O2SAT 98
--- NOTE | 2020-12-08 17:08 | ECG_ITS ---
APPROVED REPORT Exam: Resting ECG HR:100 bpm ECG Measurements Heart Rate 100 AXES MO 138 P 64 QRSd 84 QRS 73 QT 334 T 39 QTc 430 Conclusion Normal sinus rhythm Normal ECG Electronically signed by : Chandler Ann, 12/08/2020 11:40:16
== END 2020-12-07 18:45 | disposition left against medical advice (07) ==
PROVIDERS: Emergency Provider Emergency Medicine; PCP Emergency Medicine
DX: R51.9 Headache, unspecified (principal)
CPT/HCPCS: 71045; 80053; 80305; 81001; 84484; 85025; 93005; 96365; 99283; J2405